=== PATIENT | female | born 1960 | race Caucasian/White ===

== ENCOUNTER 2018-03-30 06:54 | Day surgery (SDC) | payer OTHER ==
[2018-03-27 15:22] VITALS: BMI 30.6
[2018-03-30] MEDS ORDERED: PROPOFOL 20 ML ONE ×2 (09:11)
[2018-03-30] MEDS ORDERED: LIDOCAINE HCL/PF 2% SDV 5ML VIAL ONE (09:11)
[2018-03-30] MEDS ORDERED: MIDAZOLAM HCL 2 MG/2 ML SINGLE DOSE VIAL ONE (09:11)
[2018-03-30] MEDS ORDERED: DEXAMETHASONE SOD PHOSPHATE 4 MG/1 ML VIAL ONE (09:12)
[2018-03-30] MEDS ORDERED: KETOROLAC TROMETHAMINE 30 MG/1 ML VIAL ONE (09:13)
[2018-03-30] MEDS ORDERED: ISOSULFAN BLUE 10 MG/ML VIAL SQ ONE (10:08)
[2018-03-30] MEDS ORDERED: LIDOCAINE HCL 2% (20ML MULTI-DOSE VIAL) NR ONE (10:10)
[2018-03-30] MEDS ORDERED: ACETAMINOPHEN INJECTION 100 ML IVPB ONE (10:32)
[2018-03-30] MEDS ORDERED: LIDOCAINE HCL/PF 1% SDV 5ML VIAL ONE (10:54)
[2018-03-30] MEDS ORDERED: DESFLURANE GAS 240 ML BOTTLE IH ONE (11:19)
[2018-03-30] MEDS ORDERED: SEVOFLURANE 250 ML BTL ONE (11:19)
[2018-03-30] MEDS ORDERED: ceFAZolin SODIUM 1 GM VIAL IVPB ONE (11:19)
[2018-03-30] MEDS ORDERED: PROMETHAZINE HCL 25 MG/1 ML VIAL IVPUSH PRN (12:24)
[2018-03-30] MEDS ORDERED: oxyCODONE HCL 5 MG TABLET PO PRN (12:24)
[2018-03-30] MEDS ORDERED: ONDANSETRON 4 MG/2 ML VIAL IVPUSH PRN (12:24)
[2018-03-30] MEDS ORDERED: LACTATED RINGERS SOLUTION 1,000 ML IV SCH (12:30)
[2018-03-30 14:32] VITALS: BP 128/76; PULSE 64; TEMP 97.2
--- NOTE | 2018-03-30 14:36 | OP ---
DATE OF OPERATION: 03/30/2018 PREOPERATIVE DIAGNOSIS: Right breast cancer. POSTOPERATIVE DIAGNOSIS: Right breast cancer. PROCEDURE: Right breast wire-localized lumpectomy and sentinel lymph node biopsy. SURGEON: Alise Elise MD ANESTHESIA: General. ESTIMATED BLOOD LOSS: Minimal. COMPLICATIONS: None. DISPOSITION: Stable at the end of procedure. INDICATIONS FOR PROCEDURE: Patient presented with a screening mammography that noted a density in the inner right breast. She underwent a stereotactic needle biopsy, and biopsy showed an invasive carcinoma. My recommendation was a lumpectomy and sentinel node biopsy. The procedure was discussed with all her questions answered. PROCEDURE IN DETAIL: Patient was brought to [facility] in [place], taken down to nuclear medicine where technetium level sulfur colloid was injected in the right breast for identification of the sentinel node. She was also taken to breast imaging, where a wire was used to localize the density and clip in the inner right breast. She was then brought into the operating room, and after induction of general anesthesia and IV antibiotics, 5 mL of isosulfan blue dye was injected into the right subareolar plexus by me, and the breast was massaged for 5 minutes. The breast and axilla were then prepped and draped in the usual sterile fashion. A 4-cm incision was made in the right axilla, carried down through the clavipectoral fascia to identify a sentinel lymph node that was sent as sentinel lymph node No. 1, hot but not blue. There was no other radioactivity, blue dye, or pathologic feeling lymph nodes in the right axilla. Therefore, hemostasis was assured. The right breast lumpectomy was performed. A radial incision was made in the right breast 3 o'clock location. A wire was used as a guide to get down to the area of interest. This was excised en bloc, tagged it with a long stitch lateral, short stitch superiorly, sent for specimen radiograph. Hemostasis was secured with electrocautery. Specimen radiograph showed the clip and wire to be intact within the specimen with a density evident. This was sent to Pathology for permanent section. Hemostasis was secured with electrocautery. The lumpectomy parenchyma was approximated with interrupted 2-0 Vicryl. Skin approximated with interrupted 2-0 Vicryl and running 4-0 Prolene. A sterile dressing of Steri-Strips and Tegaderm was applied. The axillary incision was also closed in a routine fashion with interrupted 3-0 Vicryl and running 4-0 Prolene. A sterile dressing of Tegaderm and 4x4s applied as well as a surgical bra. She tolerated the procedure well, was extubated on the operating room table, and taken to recovery in good condition. ALISE ELISE M.D. [id number]
--- NOTE | 2018-04-02 14:43 | PATH ---
Surgical Pathology Report Patient Name: MAGED MANRIQUEZ [facility]. Rec. #: [id number] /Age/Gender: 1960 (Age: 57) / F Account: [id number] Location: [facility] SUR[facility] Taken: 03/30/2018 Received: 03/30/2018 Reported: 04/02/2018 Physicians: Alise Ren M.D. Specimen(s) Received A: RIGHT BREAST LUMPECTOMY B: RIGHT AXILLARY SENTINEL LYMPH NODE #1 Clinical History Invasive Final Diagnosis A. BREAST, RIGHT, LUMPECTOMY: ATYPICAL DUCTAL HYPERPLASIA IN A BACKGROUND OF CHANGES OF PRIOR BIOPSY AND FIBROCYSTIC CHANGES INCLUDING STROMAL FIBROSIS, MICROCYSTS, COLUMNAR CELL CHANGE, AND USUAL DUCTAL HYPERPLASIA. NO RESIDUAL CARCINOMA IDENTIFIED. B. AXILLARY SENTINEL LYMPH NODE #1, RIGHT, EXCISION: ONE BENIGN LYMPH NODE (0/1). Comment: History of prior biopsy with invasive carcinoma and prior material from the left breast are noted. Electronically Signed Es Cowan M.D. Gross Description A. Received fresh on an [employer], labeled "right breast lumpectomy," is a 7.1 x 5.5 x 1.6 cm. reyes-yellow, irregular, portion of fibroadipose tissue with a needle localization wire present. There is a short suture marking the superior aspect and a long suture marking the lateral aspect, per the surgeon. There is no skin or nipple present. The specimen is inked as follows: superior and lateral blue; inferior green; medial yellow; anterior red; deep black. The specimen is serially sectioned from lateral to medial. Sectioning reveals a 0.7 x 0.6 x 0.6 cm reyes, indurated mass with associated hemorrhagic biopsy site. The mass focally abuts the superior margin and is 0.2 cm from the lateral margin, 0.5 cm from the deep margin and 1.1 cm from the inferior margin. The remaining margins appear clear of the mass. [employer] sections are submitted in 6 cassettes as follows: 1-full face section of mass with superior and inferior margins; 2-additional mass with superior margin; 3-additional mass with superior and deep margins; 4-lateral margin; 5-anterior margin; 6-medial margin. Time to formalin fixation: 24 minutes Total formalin fixation time: Approximately 6 hours. B. Received in formalin labeled "sentinel lymph node right axillary #1," is a 1.0 x 0.9 x 0.5 cm reyes, irregular lymph node with attached fat. The specimen is bisected and entirely submitted in one cassette. 03/30/201803/30/2018
== END 2018-03-30 14:30 | disposition home or self-care (01) ==
LOC: JASU-SURG 06:54
PROVIDERS: ATTEND Surgery
PROC: 0HBT0ZZ Excision of Right Breast, Open Approach (ICD-10-PCS; principal; 2018-03-30 11:00)
DX: C50.911 Malignant neoplasm of unspecified site of right female breast (principal)
CPT/HCPCS: 19281; 78195-TC; 88307-TC; 94760; A9541; J0131